=== PATIENT | female | born 1965 | race Caucasian/White ===

== ENCOUNTER 2018-11-22 07:08 | Inpatient (IN) | payer OTHER ==
[2018-11-22] MEDS ORDERED: Piperacillin/Tazobactam 4.5 GM VIAL ONE (07:26)
[2018-11-22 07:38] LABS: Base Excess-Venous -23.1 mmol/L (-2.0 to 3.0); Bicarbonate (HCO3v) 4.9 mmol/L (22.0-28.0); CO2 Tension (PvCO2) 17.1 mmHg (40.0-50.0); Calcium, Ionized 1.07 mmol/L (See Comments:); Chloride 119 mmol/L (98-107); Hemoglobin - Calc 19.5 g/dL (12.0-16.0); O2 Tension (PvO2) 51.4 mmHg (35.0-45.0); Potassium 4.5 mmol/L (3.5-5.1); Sodium 138 mmol/L (138-145); T. Carbon Dioxide 5.4 mmol/L (22.0-28.0); pH (Venous) 7.067 (7.320-7.430); vO2 Saturation-calc 71.8 % (60.0-85.0)
[2018-11-22 07:47] LABS: Hemoglobin 16.6 g/dL (12.0-16.0); Mean Corpuscular HGB CONC 30.8 g/dL (32.0-36.0); Mean Corpuscular Hemoglobin 29.2 pg (27.0-31.0); Mean Corpuscular Volume 95.1 fL (78.0-98.0); Mean Platelet Volume 9.1 fL (7.4-10.4); Platelet Count 565 thou/uL (130-400); RBC Distribution Width 12.7 % (11.5-14.5); Red Blood Cell (RBC) Count 5.69 mill/uL (4.20-5.40); White Blood Cell (WBC) Count 30.5 thou/uL (4.8-10.8)
--- NOTE | 2018-11-22 07:52 | RAD ---
FExam: Chest one view HISTORY:Vomiting Comparison: None FINDINGS: Cardiac silhouette: Normal Pulmonary vessels: Normal Costophrenic angles: Clear LUNGS: No masses or consolidation. Pneumothorax: None Osseous abnormalities: None IMPRESSION: No acute cardiopulmonary process.
[2018-11-22 08:00] LABS: Band 12 % (5-11); Lymphocytes 2 % (21-51); MDiff Complete? YES; Metamyelocyte 2 % (0-0); Monocytes 7 % (0-10); Myelocyte 1 % (0-0); Neutrophil 76 % (42-75); Platelet Morphology Comment Appears Increased
[2018-11-22 08:02] LABS: Bilirubin Moderate (Negative); Blood, Urine Large (Negative); Clarity CLOUDY (Clear); Glucose, Urine (Dipstick) >=1000 mg/dL (Negative); Leukocyte Negative (Negative); Nitrite Negative (Negative); Protein, Urine (Dipstick) 30 mg/dL (Neg-Trace); Specific Gravity, Urine 1.021 (1.002-1.036); Urobilinogen 0.2 mg/dL (0.2-1.0)
[2018-11-22 08:05] LABS: Squamous Epithelial 0-3 HPF (0-3)
[2018-11-22 08:18] LABS: Bacteria/HPF Rare-Few HPF (None Seen); Crystals/HPF RARE AMORPH URATES HPF (Negative); Yeast-All Forms None Seen HPF (None Seen)
[2018-11-22 08:23] LABS: ALT (SGPT) 16 U/L (8-55); AST (SGOT) 34 U/L (5-34); Albumin 3.2 g/dL (3.5-5.0); Alkaline Phosphatase 204 U/L (40-150); Calc. Creatinine Clearance 0 mL/min (70-130); Estimated GFR-MDRD 21; Globulin 5.9 g/dL (2.4-3.5); Phosphorus 4.4 mg/dL (2.3-4.7)
[2018-11-22 08:24] LABS: Magnesium 3.5 mg/dL (1.6-2.6)
[2018-11-22 08:26] LABS: BUN (Urea Nitrogen) 60 mg/dL (9.8-20.1); Bilirubin, Total 0.2 mg/dL (0.2-1.2); Calcium 9.5 mg/dL (7.8-10.44); Chloride 105 mmol/L (98-107); Protein, Total 9.1 g/dL (6.0-8.3); Sodium 138 mmol/L (136-145)
[2018-11-22 08:34] LABS: Carbon Dioxide Less than 8 mmol/L (22-29)
[2018-11-22 09:07] LABS: Glucose 790 mg/dL (70-105)
[2018-11-22] MEDS ORDERED: CCU Electrolyte Replacement 1 EACH IVPB ONE (09:11)
[2018-11-22] MEDS ORDERED: D5 1/2 NS w/20 mEq KCL 1,000 ML IV PRN (09:11)
[2018-11-22] MEDS ORDERED: Dextrose 5 %-0.45 % NaCl 1,000 ML IV PRN ×2 (09:11→12:46)
[2018-11-22] MEDS ORDERED: NS 0.9% w/ 20 MEQ KCL 1,000 ML IV PRN ×4 (09:11→12:43)
[2018-11-22] MEDS ORDERED: Sodium Chloride 0.9% 1,000 ML IV PRN ×8 (09:11→12:48)
[2018-11-22] MEDS ORDERED: HUMULIN R 100 UNITS in Sodium Chloride 0.9% 100 ML IVPB SCH ×3 (09:15→13:00)
[2018-11-22] MEDS ORDERED: Insulin Regular 300 UNITS/3 ML VIAL ONE (09:29)
[2018-11-22] MEDS ORDERED: Potassium Phosphate 12 MMOL in Sodium Chloride 0.9% 250 ML 250 ML IV PRN ×2 (09:57→12:48)
[2018-11-22] MEDS ORDERED: CCU ELECTROLYTE REPLACEMENT PROTOCOL FS PRN ×2 (09:57→12:48)
[2018-11-22] MEDS ORDERED: Potassium Chloride 20 MEQ TAB PO PRN ×2 (09:57→12:48)
[2018-11-22] MEDS ORDERED: Magnesium 2 GM/50 ML 2 GM in Premix Bag 1 BAG IVPB PRN ×2 (09:57→12:48)
[2018-11-22] MEDS ORDERED: Potassium Chloride 40 MEQ in Sodium Chloride 0.9% 250 ML 250 ML IVPB PRN (09:57)
[2018-11-22] MEDS ORDERED: Potassium Phosphate 9 MMOL in Sodium Chloride 0.9% 100 ML IVPB PRN ×2 (09:57→12:48)
[2018-11-22] MEDS ORDERED: Potassium Chloride 40 MEQ in Premix Bag 1 BAG IVPB PRN ×2 (09:57→12:48)
[2018-11-22] MEDS ORDERED: Magnesium Oxide 400 MG TAB PO PRN ×4 (09:57→12:48)
[2018-11-22] MEDS ORDERED: Potassium Phosphate 15 MMOL in Sodium Chloride 0.9% 250 ML 250 ML IV PRN ×2 (09:57→12:48)
[2018-11-22] MEDS ORDERED: PHOS-NAK 1 PKT PACK PO PRN ×4 (09:57→12:48)
[2018-11-22 10:06] LABS: BUN (Urea Nitrogen) 55 mg/dL (9.8-20.1); Calc. Creatinine Clearance 0 mL/min (70-130); Calcium 10.2 mg/dL (7.8-10.44); Chloride 107 mmol/L (98-107); Estimated GFR-MDRD 22; Potassium 3.3 mmol/L (3.5-5.1); Sodium 144 mmol/L (136-145)
[2018-11-22 10:13] LABS: Carbon Dioxide Less than 8 mmol/L (22-29); Glucose 753 mg/dL (70-105)
[2018-11-22] MEDS ORDERED: Sodium Chloride 0.9% 1,000 ML IV SCH (10:15)
[2018-11-22 10:57] LABS: Hemoglobin A1c 14.3 % (4.0-6.0)
[2018-11-22 11:17] VITALS: BMI 24.5
[2018-11-22] MEDS ORDERED: Piperacillin/Tazobactam 3.375 GM in Sodium Chloride 0.9% 100 ML IVPB SCH (12:00)
[2018-11-22] MEDS: Potassium Chloride 40 MEQ in Sodium Chloride 0.9% 250 ML 250 ML IVPB PRN ×2 (13:51→19:39)
--- NOTE | 2018-11-22 14:10 | PDOC.PULCN ---
Pulmonology Consult: HPI - Date of Consult Date: 11/22/18 Time: 09:30 - Consult Details Reason for Consult: DKA - History of Present Illness HPI: AMOS AZUL is a 53 year-old F w/o any previous medical history who presented to the ED after a 4 day history of nausea and vomiting. Per pt was feeling tired and mildly nauseated last monday which progressively worsened to N/V by Monday. She was seen in an OP clinic and diagnosed with a viral gastroenteritis and given zofran and phenergan w/o resolution of symptoms. Pt reports increased thirst and polyuria for the last several weeks. Pulmonology Consult: ROS - Review of Systems Constitutional: chills, weakness. negative: fever Cardiovascular: negative: chest pain, palpitations, edema Respiratory: negative: congestion, cough, chest soreness, chest tightness, pain on deep breathing, short of breath Pulmonology Consult: [facility] Source: patient, family Past Medical History: None known - Family History Pertinent family history: Maternal DMII - Social History Smoking Status: Never smoker Alcohol Use: occasional Drug Use History: none Living Situation: Pulmonology Consult: Meds - Medications MAR Reviewed: Yes Medications: Current Medications Potassium Chloride/Sodium Chloride (Ns 0.9% W/ 20 Meq Kcl) 1,000 mls @ 500 mls/ hr IV .Q2H PRN; Protocol PRN Reason: Step 2 of DKA Protocol Potassium Chloride/Sodium Chloride (Ns 0.9% W/ 20 Meq Kcl) 1,000 mls @ 250 mls/ hr IV .Q4H PRN; Protocol PRN Reason: SEE STEP 3 OF DKA PROTOCOL Dextrose/Sodium Chloride (D5 1/2 Ns) 1,000 mls @ 250 mls/hr IV .Q4H PRN; Protocol PRN Reason: Step 4 of DKA Protocol Potassium Chloride/Dextrose/Sod Cl (D5 1/2 Ns W/20 Meq Kcl) 1,000 mls @ 250 mls /hr IV .Q4H PRN; Protocol PRN Reason: Step 4 of DKA Protocol Insulin Human Regular 100 (units/ Sodium Chloride) 101 mls @ 0 mls/hr IVPB INF MIGEL; Protocol Sodium Chloride (Normal Saline 0.9%) 1,000 mls @ 500 mls/hr IV .Q2H PRN; Protocol PRN Reason: Step 1 of DKA Protocol Sodium Chloride (Normal Saline 0.9%) 1,000 mls @ 1,000 mls/hr IV .Q1H PRN; Protocol PRN Reason: Step 1 of DKA Protocol Sodium Chloride (Normal Saline 0.9%) 1,000 mls @ 250 mls/hr IV .Q4H PRN; Protocol PRN Reason: SEE STEP 3 OF DKA PROTOCOL Sodium Chloride (Normal Saline 0.9%) 1,000 mls @ 500 mls/hr IV .Q2H PRN; Protocol PRN Reason: Step 2 of DKA Protocol Piperacillin Sod/Tazobactam (Sod 3.375 gm/ Sodium Chloride) 100 mls @ 200 mls/ hr IVPB Q6HR MIGEL Potassium Chloride 40 meq/ (Sodium Chloride) 270 mls @ 135 mls/hr IVPB ASDIR PRN PRN Reason: FOR SERUM K+ 2.5 - 3.5 Last Admin: 11/22/18 13:51 Dose: 270 mls Potassium Chloride 40 meq/ (Device) 100 mls @ 50 mls/hr IVPB ASDIR PRN PRN Reason: FOR SERUM K+ 2.5 - 3.5 Magnesium Sulfate 1 gm/ Sodium (Chloride) 102 mls @ 102 mls/hr IV PRN PRN PRN Reason: MAG LEVEL 1.4 - 2.0 Magnesium Sulfate 2 gm/ Device 50 mls @ 50 mls/hr IVPB ASDIR PRN PRN Reason: MAGNESIUM < 1.4 Potassium Phosphate 9 mmol/ (Sodium Chloride) 103 mls @ 25.75 mls/hr IVPB ASDIR PRN PRN Reason: Phosphate 1.0-1.8 Potassium Phosphate 12 mmol/ (Sodium Chloride) 254 mls @ 63.5 mls/hr IV ASDIR PRN PRN Reason: Serum phosphate 0.5-0.9 Potassium Phosphate 15 mmol/ (Sodium Chloride) 255 mls @ 63.75 mls/hr IV ASDIR PRN PRN Reason: Serum Phos < 0.5 Magnesium Oxide (Magnesium Oxide) 400 mg PO BIDPRN PRN PRN Reason: FOR SERUM MAG 1.4 - 2.0 Magnesium Oxide (Magnesium Oxide) 800 mg PO PRN PRN PRN Reason: FOR SERUM MAG < 1.4 Miscellaneous Medication (Phos-Nak) 1 pkt PO TIDPRN PRN PRN Reason: FOR PHOS LEVEL 1.0 - 1.8 Miscellaneous Medication (Phos-Nak) 2 pkt PO TIDPRN PRN PRN Reason: FOR PHOS LEVEL 0.5 - 1.0 Ccu Electrolyte (Replacement Protocol) 0 each FS PRN PRN PRN Reason: FOR ELECTROLYTE REPLACEMENT Potassium Chloride (K-Dur) 40 meq PO ASDIR PRN PRN Reason: FOR SERUM K+ 2.5 - 3.5 Potassium Chloride (Klor-Con) 40 meq PER TUBE ASDIR PRN PRN Reason: FOR SERUM K+ 2.5-3.5 - Allergies Allergies/Adverse Reactions: Allergies Allergy/AdvReac Type Severity Reaction Status Date / Time crayfish Allergy Unknown Emesis Verified 11/23/18 15:00 codeine Allergy Verified 11/22/18 09:04 Pulmonology Consult: PE - Physical Exam Deviation from normal: Moderate distress, ill appearing HEENT: PERRLA Deviation from normal: dry MM Neck: no JVD Cardiovascular: no significant murmur, no rub Deviation from normal: tachycardic Respiratory: clear to auscultation anteriorly, clear to auscultation bilaterally Gastrointestinal: soft, no distention Deviation from normal: hypoactive BSX4, mild RUQ/Epigastric TTP Musculoskeletal: no edema, pulses present Neurological: non-focal, moves all 4 limbs Psychiatric: normal affect Skin: no rash Pulmonology Consult: Results - Labs Result Diagrams: 11/27/18 07:15 11/27/18 07:15 - ABG Interpretation Attestation: I reviewed and interpreted this ABG. ABG Results: POC Bicarbonate Calc 4.9 mmol/L (22.0-28.0) L* 11/22/18 07:34 Interpretation: metabolic acidosis - EKG Data Rate: tachycardia Pulmonology Consult: A/P - Problem (1) DKA (diabetic ketoacidoses) Current Visit: Yes Code(s): E13.10 - OTH DIABETES MELLITUS WITH KETOACIDOSIS WITHOUT COMA Status: Acute (2) SIRS (systemic inflammatory response syndrome) Current Visit: Yes Code(s): R65.10 - SIRS OF NON-INFECTIOUS ORIGIN W/O ACUTE ORGAN DYSFUNCTION Status: Acute (3) High anion gap metabolic acidosis Current Visit: Yes Code(s): E87.2 - ACIDOSIS Status: Acute (4) NOLA (acute kidney injury) Current Visit: Yes Code(s): N17.9 - ACUTE KIDNEY FAILURE, UNSPECIFIED Status : Acute (5) Elevated lipase Current Visit: Yes Code(s): R74.8 - ABNORMAL LEVELS OF OTHER SERUM ENZYMES Status: Acute - Time Time: 50% of the time was spent in coordination of care (as documented) at patient's floor/unit and/or counseling patient. Time with Patient: greater than 50 minutes - Plan Plan: 1) DKA: - pt profoundly hyperglycemic with large anion gap met acidosis and B- hydroxybutyrate >9 - pt currently placed on DKA protocol - pt blood gas supportive of anion gap met acidosis - pH >6.9, no bicarb inidicated - continue to trend potassium and cont K+ w/ NS until K+ 4-5 - UA negative for evidence of infection. Will check ruq US given elevated lipase and elevated alk phos; although this could be simply secondary to severity of disease 2) SIRS - 2/2 DKA - cont DKA protocol 3) AG met acidosis: - 2/2 DKA - see 1 4) elevated lipase: possibly 2/2 DKA; however, r/o pancreatitis causes - RUQ US ordered, pending 5) NOLA: bun/cr: >20, pre-renal azotemia 2/2 profound volume depletion unknown baseline creatinine cont IVF hydration Dispo: Pt will remain in ICU on DKA protocol and electrolytes closely monitored. RUQ pending. Addendum - Attending - Attending Attestation Date/Time: 11/22/18 1900 I personally evaluated the patient and discussed the management with Dr. Mcrae. I agree with the History, Examination, Assessment and Plan documented above with any addition or exceptions noted below. 70 minutes have been devoted to this patient in various activities. I personally reviewed all imaging studies and laboratory data noted within this document. For fifty percent of this time, I was interacting with the patient at the bedside or coordinating care with the care team. For the remainder of the time I was immediately available to the patient in the hospital unit.
[2018-11-22 14:13] LABS: Lactic Acid 1.6 mmol/L (0.5-2.2)
--- NOTE | 2018-11-22 15:28 | ULT ---
FEXAM: US Gallbladder RUQ CLINICAL HISTORY: Elevated lipase. Rule out for common bile duct stone.. COMPARISON: None. FINDINGS: Markedly limited evaluation due to bowel gas. Pancreas: Obscured by bowel gas Liver:Limited in evaluation. Increased echogenicity may be due to technical limitations. The possibil ity of hepatic steatosis or hepatocellular disease cannot be excluded. Right portal vein is patent Gallbladder: No sonographic evidence of cholelithiasis, gallbladder wall thickening or pericholecysti c fluid. Brady's sign:Negative Bile ducts: Suboptimal evaluation of the common bile duct. If there is concern for choledocholithiasi s, consider MRCP or ERCP. Right kidney: Mild pelvic dilatation Right kidney measuring 6.3 x 6.1 x 12.5 cm. cm in length. IMPRESSION: 1. No sonographic evidence of cholelithiasis or cholecystitis. 2. Mild right-sided hydronephrosis. 3. Suboptimal evaluation the common bile duct. If there is concern for choledocholithiasis, consider MRCP or ERCP.
[2018-11-22 15:56] LABS: Anion Gap 18 mmol/L (10-20); BUN (Urea Nitrogen) 45 mg/dL (9.8-20.1); Calc. Creatinine Clearance 43 mL/min (70-130); Calcium 8.3 mg/dL (7.8-10.44); Carbon Dioxide 12 mmol/L (22-29); Chloride 122 mmol/L (98-107); Estimated GFR-MDRD 30; Glucose 409 mg/dL (70-105); Potassium 2.6 mmol/L (3.5-5.1); Sodium 149 mmol/L (136-145)
[2018-11-22] MEDS ORDERED: Potassium Chloride 40 MEQ in Sodium Chloride 0.45% 1,000 ML IV SCH (16:15)
--- NOTE | 2018-11-22 17:09 | HP ---
CHIEF COMPLAINT: Nausea, vomiting, and generalized weakness. HISTORY OF PRESENT ILLNESS: The patient is a 53-year-old female with no significant past medical history, who presents to the hospital for generalized weakness. The patient's and the patient stated that for the past week she has been having generalized weakness and abdominal pain and emesis. The patient does state that she has been very stressed at work, however, in the past 24 hours, she started having worsening and worsening weakness. The patient did go to a physician about 4 days ago with the complaints of abdominal pain, nausea, and generalized weakness. At this time, she was diagnosed with a viral gastroenteritis and was given promethazine and Zofran. The patient's symptoms continued to worsen. She was unable to take anything orally, only minimal hydration with some Powerade or Gatorade. The patient's stated that this morning she went to the bathroom and almost was unable to get up due to significant weakness. The patient's denied the patient having a syncopal episode or having any injuries. The patient denies any fevers or chills. Denies any diarrhea; however, she has been constipated. She denies any recent infections. She did complain of some left-sided ear pain; however, has not taken any antibiotics or has not been diagnosed with anything. PAST MEDICAL HISTORY: She has seasonal allergies. PAST SURGICAL HISTORY: None. FAMILY HISTORY: Mother had diabetes. SOCIAL HISTORY: She denies any tobacco use, alcohol, or smoking. She is . She is a full code. She lives with her . She is a teacher. ALLERGIES: SHE IS ALLERGIC TO CODEINE, HER REACTION IS VOMITING. MEDICATIONS: She takes Claritin-D. REVIEW OF SYSTEMS: All negative except for the ones mentioned above in the HPI. PHYSICAL EXAMINATION: VITAL SIGNS: Temperature of 98.8, heart rate of 123, BP 135/94, and oxygen saturation on room air. GENERAL: She is awake, alert, appears ill, oriented x3. CV: S1 and S2 present. Tachycardic. LUNGS: Clear to auscultation. No rhonchi or wheezes noted. HEENT: Normocephalic and atraumatic. No lymphadenopathy noted. Her ears using otoscope were examined, no erythema or abnormalities noted. ABDOMEN: Bowel sounds are present x2. Soft. Pain on palpation around the umbilical area and bilateral suprapubic area. NEUROVASCULAR: No focal deficits noted. The patient is able to move everything. SKIN: No rashes or lesions noted. LABORATORY RESULTS: Sodium of 138, potassium of 5.0, BUN of 60, creatinine of 2.38, glucose of 790, magnesium of 3.5, alkaline phos of 204, lipase of 775. WBCs of 30.5, hemoglobin of 16.6, hematocrit of 54.1, and platelets of 565. She has 12 bands. UA appears grossly normal, just wbc's of 7 to 10. IMAGING STUDIES: Chest x-ray, no acute abnormalities noted. ASSESSMENT AND PLAN: The patient is a 53-year-old female, who presents to the hospital with generalized weakness. 1. Diabetic ketoacidosis. The patient states that she has never been officially diagnosed with either prediabetes or diabetes. We will start the patient on insulin drip. She is receiving normal saline boluses and we will start the patient on the diabetic ketoacidosis protocol. Given her pH of 7.06, she does not meet the criteria for any bicarb. We will just continue to monitor her and continue checking the chemistries every 3 to 4 hours. We will also check a hemoglobin A1c. 2. Acute kidney injury. Her creatinine is 2.3. I will get a CT of abdomen and pelvis without contrast just to rule out any obstructive pathology. We will also check urine electrolytes. Most likely, this is secondary to dehydration. If her creatinine does not improve, may consider getting a renal consult. 3. Leukocytosis. This is most likely secondary to her diabetic ketoacidosis; however, I cannot rule out infection. Urine and chest x-ray did not show any acute abnormalities. I will go ahead and do a CT of abdomen and pelvis to see if there are any other abnormalities and we will prophylactically start her on some Zosyn and this may be discontinued if she improves. 4. Anion gap metabolic acidosis, most likely secondary to her diabetic ketoacidosis. Her beta-hydroxybutyric acid was 9.19. We will continue to monitor her chemistry. If her acidosis and her creatinine does not improve, I will not hesitate to consult Nephrology. However, for now, I believe we will continue her current treatment. 5. Deep venous thrombosis prophylaxis. We will put the patient on SCDs. The plan was discussed with the family, with , and the patient and we will continue to monitor her. Job ID: [id number]
[2018-11-22] MEDS ORDERED: Famotidine/PF 20 mg/2ml Vial SLOW IVP SCH (17:30)
[2018-11-22] MEDS ORDERED: Ondansetron PF 4 MG/2 ML Vial IVP SCH (17:45)
[2018-11-22] MEDS: Piperacillin/Tazobactam 3.375 GM in Sodium Chloride 0.9% 100 ML IVPB SCH ×2 (17:55→22:59)
[2018-11-22] MEDS: D5 1/2 NS w/20 mEq KCL 1,000 ML IV PRN ×2 (18:20→22:59)
[2018-11-22 18:21] LABS: Anion Gap 15 mmol/L (10-20); BUN (Urea Nitrogen) 41 mg/dL (9.8-20.1); Calc. Creatinine Clearance 49 mL/min (70-130); Calcium 8.8 mg/dL (7.8-10.44); Carbon Dioxide 15 mmol/L (22-29); Estimated GFR-MDRD 36; Glucose 280 mg/dL (70-105); Potassium 3.1 mmol/L (3.5-5.1); Sodium 155 mmol/L (136-145)
[2018-11-22 18:25] LABS: Chloride 128 mmol/L (98-107)
[2018-11-23 02:38] LABS: Anion Gap 10 mmol/L (10-20); BUN (Urea Nitrogen) 31 mg/dL (9.8-20.1); Calc. Creatinine Clearance 63 mL/min (70-130); Calcium 8.8 mg/dL (7.8-10.44); Carbon Dioxide 18 mmol/L (22-29); Estimated GFR-MDRD 48; Glucose 206 mg/dL (70-105); Magnesium 1.9 mg/dL (1.6-2.6); Potassium 3.5 mmol/L (3.5-5.1); Sodium 156 mmol/L (136-145)
[2018-11-23 02:41] LABS: Chloride 132 mmol/L (98-107); Phosphorus Less than 1.0 mg/dL (2.3-4.7)
[2018-11-23] MEDS: Piperacillin/Tazobactam 3.375 GM in Sodium Chloride 0.9% 100 ML IVPB SCH ×4 (05:44→23:58)
[2018-11-23] MEDS: D5 1/2 NS w/20 mEq KCL 1,000 ML IV PRN (06:15)
[2018-11-23] MEDS ORDERED: Dextrose 50% Abboject 50 ML SYRINGE SLOW IVP PRN (08:17)
[2018-11-23] MEDS ORDERED: Dextrose 5% in Water 1,000 ML IV PRN (08:17)
[2018-11-23] MEDS ORDERED: Potassium Phosphate 30 MMOL in Sodium Chloride 0.9% 500 ML IVPB SCH (09:00)
[2018-11-23] MEDS: Insulin Glargine 12 UNITS in Pre-Filled Syringe 1 EACH SC SCH (09:47)
[2018-11-23] MEDS: Famotidine/PF 20 mg/2ml Vial SLOW IVP SCH (09:47)
[2018-11-23] MEDS: Dextrose 5% in Water 1,000 ML IV SCH ×2 (09:57→23:59)
--- NOTE | 2018-11-23 11:39 | PRG ---
DATE OF SERVICE: 11/23/2018 SERVICE: Pulmonary Medicine. INTERVAL HISTORY: The patient is doing really well from a metabolic standpoint. Overnight, her blood cultures x2 grew gram-negative rods. She is on appropriate antibiotics currently. She has no complaints of shortness of breath or chest discomfort currently. Her heart rate is settling down very nicely. She is yet to get her appetite back. PHYSICAL EXAMINATION: VITAL SIGNS: Afebrile, pulse 98, blood pressure 157/95, respirations 19, saturation 100% on room air. GENERAL: The patient is awake and alert, in no apparent distress. LUNGS: Excellent air entry with no prolonged expiratory phase. No crackles are identified. HEART: Normal rate and regular. ABDOMEN: Soft, nontender, and nondistended. Bowel sounds are positive. MUSCULOSKELETAL: No cyanosis or clubbing. No pitting in the bilateral lower extremities. NEUROLOGIC: Grossly nonfocal. LABORATORY DATA: Blood sugar ranges from 137 to 173. Chloride 132, sodium is up trending to 156, creatinine 1.17 and downtrending. Phosphorus is below the assay limit of 1, magnesium 1.9. Beta-hydroxybutyrate was 9. Blood culture is growing E coli in 2/2. Urine culture, and influenza A and B are negative to date. IMAGING: Ultrasound demonstrates no evidence of cholecystitis or choledocholithiasis. ASSESSMENT: 1. Severe sepsis. 2. Bacteremia secondary to Escherichia coli. 3. Diabetic ketoacidosis. 4. Acute kidney injury, resolving. 5. Hypernatremia. DISCUSSION AND PLAN: I will repeat a CBC, CMP, and lipase tomorrow morning. At this point, she is on appropriate antibiotic. Vancomycin will be interrupted. Pulmonary/Critical Care will continue to follow along while the patient remains in this location. She is much improved compared to where we were yesterday, but has a long road ahead of us for recovery. We still do not quite know where our source was from. That being said, she maintains a little bit of encephalopathy associated with hypernatremia. When she wakes up a little bit more, we will need to re-evaluate her GI tract. Job ID: [id number]
[2018-11-23] MEDS: HumaLOG 300 UNITS/3 ML VIAL SC PRN ×3 (12:32→20:52)
[2018-11-23] MEDS ORDERED: Ondansetron PF 4 MG/2 ML Vial IVP PRN (13:27)
--- NOTE | 2018-11-23 13:33 | PDOC.PN ---
- Subjective Encounter Start Date: 11/23/18 Encounter Start Time: 13:31 Patient seen and examined, family at bedside, patient states she feels better, all questions answered. - Objective Vital Signs & Weight: Vital Signs (12 hours) Temp 11/23/18 12:00 98.4 F 11/23/18 08:00 98.2 F 11/23/18 03:00 98.0 F Weight Weight 160 lb 14.999 oz Most Recent Monitor Data Heart Rate from ECG 95 NIBP 145/82 NIBP BP-Mean 103 Respiration from ECG 16 SpO2 100 I&O: 11/22/18 11/23/18 11/24/18 06:59 06:59 06:59 Intake Total 6686 Output Total 2600 525 Balance 4086 -525 Result Diagrams: 11/22/18 07:22 11/23/18 01:40 Additional Labs: Accuchecks 11/23/18 11/23/18 11/23/18 11:37 10:42 09:36 POC Glucose 177 H 177 H 190 H 11/23/18 11/23/18 11/23/18 08:28 07:31 06:12 POC Glucose 173 H 173 H 158 H 11/23/18 11/23/18 11/23/18 04:55 04:01 03:13 POC Glucose 137 H 125 H 152 H 11/23/18 11/23/18 11/23/18 01:46 00:50 00:04 POC Glucose 179 H 202 H 218 H 11/22/18 11/22/18 11/22/18 22:59 22:16 21:00 POC Glucose 286 H 256 H 294 H 11/22/18 11/22/18 11/22/18 20:11 19:14 18:04 POC Glucose 286 H 233 H 221 H 11/22/18 11/22/18 11/22/18 17:04 16:04 15:00 POC Glucose 277 H 271 H 328 H 11/22/18 11/22/18 11/22/18 14:00 13:04 12:04 POC Glucose 345 H 373 H 428 H 11/22/18 11:03 POC Glucose 507 H Phys Exam - Physical Examination Constitutional: NAD fatigued, aceton smell in room HEENT: PERRLA, moist MMs, sclera anicteric Neck: no nodes, no JVD, supple Respiratory: no wheezing, no rales, no rhonchi Cardiovascular: RRR, no significant murmur, no rub Gastrointestinal: soft, non-tender, no distention Musculoskeletal: no edema, pulses present Dx/Plan (1) NOLA (acute kidney injury) Code(s): N17.9 - ACUTE KIDNEY FAILURE, UNSPECIFIED Status: Acute (2) DKA (diabetic ketoacidoses) Code(s): E13.10 - OTH DIABETES MELLITUS WITH KETOACIDOSIS WITHOUT COMA Status : Acute (3) High anion gap metabolic acidosis Code(s): E87.2 - ACIDOSIS Status: Acute (4) SIRS (systemic inflammatory response syndrome) Code(s): R65.10 - SIRS OF NON-INFECTIOUS ORIGIN W/O ACUTE ORGAN DYSFUNCTION Status: Acute - Plan * DC insulin drip, gap closed * on D5W due to high Na, patient also states she's thirsty, clear liquid ordered , nurse advised to give zofran prior to meals and allow patient to drink some water, she'll likely correct her own Na with water in take * transfer to floor * A1C above 14, will monitor for now on the telemetry floor * UA shows some proteinuria, will obtain random UPC for now * will also start on SHAVON prior to discharge * possible DC in 24-48hrs if patient doing better, tolerating diet and passing gas * advised family that patient will need yearly eye exams as well as twice yearly labs and urinalysis done * case and plan d/w patient and famly at length, they understand and agree with this plan.
[2018-11-23 16:59] LABS: Magnesium 1.7 mg/dL (1.6-2.6)
[2018-11-23 19:29] LABS: ALT (SGPT) 8 U/L (8-55); AST (SGOT) 12 U/L (5-34); Albumin 2.5 g/dL (3.5-5.0); Alkaline Phosphatase 131 U/L (40-150); Anion Gap 14 mmol/L (10-20); BUN (Urea Nitrogen) 20 mg/dL (9.8-20.1); Bilirubin, Total 0.5 mg/dL (0.2-1.2); Calc. Creatinine Clearance 80 mL/min (70-130); Calcium 8.3 mg/dL (7.8-10.44); Carbon Dioxide 17 mmol/L (22-29); Chloride 128 mmol/L (98-107); Estimated GFR-MDRD 63; Globulin 3.4 g/dL (2.4-3.5); Glucose 345 mg/dL (70-105); Potassium 3.8 mmol/L (3.5-5.1); Protein, Total 5.9 g/dL (6.0-8.3); Sodium 155 mmol/L (136-145)
[2018-11-24] MEDS: Piperacillin/Tazobactam 3.375 GM in Sodium Chloride 0.9% 100 ML IVPB SCH ×3 (05:34→16:43)
[2018-11-24] MEDS: HumaLOG 300 UNITS/3 ML VIAL SC PRN (05:35)
[2018-11-24 08:07] LABS: #Lymphocytes 1.7 thou/uL (1.20-3.40); #Monocytes 0.7 thou/uL (0.11-0.59); #Neutrophils 10.3 thou/uL (1.40-6.50); %Basophils 0.3 % (0.0-1.0); %Eosinophils 0.3 % (0.0-10.0); %Lymphocytes 13.5 % (21.0-51.0); %Monocytes 5.5 % (0.0-10.0); %Neutrophils 80.4 % (42.0-75.0); Hemoglobin 12.7 g/dL (12.0-16.0); Mean Corpuscular Hemoglobin 29.7 pg (27.0-31.0); Mean Corpuscular Volume 89.9 fL (78.0-98.0); Mean Platelet Volume 8.2 fL (7.4-10.4); Platelet Count 300 thou/uL (130-400); RBC Distribution Width 12.4 % (11.5-14.5); Red Blood Cell (RBC) Count 4.26 mill/uL (4.20-5.40); White Blood Cell (WBC) Count 12.8 thou/uL (4.8-10.8)
[2018-11-24] MEDS: Insulin Glargine 12 UNITS in Pre-Filled Syringe 1 EACH SC SCH (09:19)
[2018-11-24] MEDS: Famotidine/PF 20 mg/2ml Vial SLOW IVP SCH (09:19)
[2018-11-24] MEDS: Dextrose 5% in Water 1,000 ML IV SCH (09:54)
[2018-11-24 10:15] LABS: Anion Gap 11 mmol/L (10-20); BUN (Urea Nitrogen) 14 mg/dL (9.8-20.1); Calc. Creatinine Clearance 89 mL/min (70-130); Calcium 8.3 mg/dL (7.8-10.44); Carbon Dioxide 23 mmol/L (22-29); Chloride 122 mmol/L (98-107); Estimated GFR-MDRD 72; Glucose 398 mg/dL (70-105); Potassium 3.1 mmol/L (3.5-5.1); Sodium 153 mmol/L (136-145)
[2018-11-24 11:45] LABS: Creatinine, Urine 22.37 mg/dL (47-110); Protein, Urine Random Quant Less than 10 mg/dL (1-14)
[2018-11-24] MEDS: Insulin Regular 300 UNITS/3 ML VIAL SC PRN ×3 (11:45→20:46)
--- NOTE | 2018-11-24 12:46 | PDOC.PN ---
- Subjective Encounter Start Date: 11/24/18 Encounter Start Time: 12:45 Patient seen and examined, states she feels better, no othe rissues or complaints, no famly at bedside, all questions answered. - Objective Vital Signs & Weight: Vital Signs (12 hours) Temp Pulse Resp BP Pulse Ox 11/24/18 11:05 98.2 F 76 16 144/82 H 97 11/24/18 07:30 98.3 F 80 20 150/89 H 97 11/24/18 04:00 97.7 F 89 20 113/74 96 Weight Admit Weight 160 lb Weight 160 lb 14.999 oz Most Recent Monitor Data Heart Rate from ECG 86 NIBP 143/92 NIBP BP-Mean 109 Respiration from ECG 16 SpO2 100 I&O: 11/23/18 11/24/18 11/25/18 06:59 06:59 06:59 Intake Total 6686 1981 Output Total 2600 1225 Balance 4086 756 Result Diagrams: 11/24/18 07:38 11/24/18 09:40 Additional Labs: Accuchecks 11/24/18 11/24/18 11/23/18 11:09 04:43 16:03 POC Glucose 357 H 343 H 288 H Phys Exam - Physical Examination Constitutional: NAD HEENT: PERRLA, moist MMs, sclera anicteric Neck: no nodes, no JVD, supple Respiratory: no wheezing, no rales, no rhonchi Cardiovascular: RRR, no significant murmur, no rub Gastrointestinal: soft, non-tender, no distention Musculoskeletal: no edema, pulses present Dx/Plan (1) NOLA (acute kidney injury) Code(s): N17.9 - ACUTE KIDNEY FAILURE, UNSPECIFIED Status: Acute (2) DKA (diabetic ketoacidoses) Code(s): E13.10 - OTH DIABETES MELLITUS WITH KETOACIDOSIS WITHOUT COMA Status : Acute (3) High anion gap metabolic acidosis Code(s): E87.2 - ACIDOSIS Status: Acute (4) SIRS (systemic inflammatory response syndrome) Code(s): R65.10 - SIRS OF NON-INFECTIOUS ORIGIN W/O ACUTE ORGAN DYSFUNCTION Status: Acute - Plan * advance diet slowly, tolerating well * cont insulins for now, sugars are still a bit volatile and thus not ready for discharge * DC plans in 24-48hrs once patient is tolerating diet and stable * case and plan d/w patient at length, she understood and agreed with this plan
[2018-11-24 17:46] LABS: ALT (SGPT) 12 U/L (8-55); AST (SGOT) 11 U/L (5-34); Albumin 2.7 g/dL (3.5-5.0); Alkaline Phosphatase 135 U/L (40-150); Anion Gap 14 mmol/L (10-20); BUN (Urea Nitrogen) 12 mg/dL (9.8-20.1); Calc. Creatinine Clearance 89 mL/min (70-130); Calcium 8.6 mg/dL (7.8-10.44); Carbon Dioxide 22 mmol/L (22-29); Chloride 117 mmol/L (98-107); Estimated GFR-MDRD 72; Globulin 3.9 g/dL (2.4-3.5); Glucose 464 mg/dL (70-105); Phosphorus 1.1 mg/dL (2.3-4.7); Potassium 2.9 mmol/L (3.5-5.1); Protein, Total 6.6 g/dL (6.0-8.3); Sodium 150 mmol/L (136-145)
--- NOTE | 2018-11-24 18:41 | CT ---
FCT brain noncontrast: HISTORY: 53-year-old with altered mental status and confusion FINDINGS: There is no evidence of acute intra-axial or extra-axial hemorrhage. No mass effect, midline shift, o r extra-axial fluid collection. No evidence of obstructive hydrocephalus. Calvarium is intact. IMPRESSION: No acute intracranial findings.
--- NOTE | 2018-11-24 19:28 | PRG ---
DATE OF SERVICE: 11/24/2018 SUBJECTIVE: Julianne Bulls They bowls in no distress. She is weak. She has not walked much. She did take a shower today and she feels 100% better. OBJECTIVE: VITAL SIGNS: She is afebrile, heart rate 76, respiratory rate 16, oximetry is 97% on room, and blood pressure 144/82. LUNGS: Clear. HEART: Regular rhythm. ABDOMEN: Soft. LABORATORY DATA: Glucoses have all been less than 173 in last 24 hours. White count 12.8, hemoglobin 12.7, platelets 00,000. IMPRESSION AND PLAN: Hyperosmolar state with metabolic acidosis, new onset diabetes. She may benefit from rehab for deconditioning and her lack of miliary with diabetes. Job ID: [id number]
[2018-11-24] MEDS ORDERED: POTASSIUM PHOSPHATE IVPB SCH (20:00)
[2018-11-24] MEDS ORDERED: SODIUM CHLORIDE 0.9% IVPB SCH (20:00)
[2018-11-25] MEDS: Piperacillin/Tazobactam 3.375 GM in Sodium Chloride 0.9% 100 ML IVPB SCH ×5 (00:09→23:39)
[2018-11-25] MEDS: Insulin Regular 300 UNITS/3 ML VIAL SC PRN ×4 (05:37→20:30)
[2018-11-25] MEDS: Dextrose 5% in Water 1,000 ML IV SCH ×2 (05:39→11:00)
[2018-11-25 07:02] LABS: #Eosinphils 0.1 thou/uL (0.0-0.7); #Lymphocytes 2.7 thou/uL (1.20-3.40); #Monocytes 0.7 thou/uL (0.11-0.59); #Neutrophils 10.1 thou/uL (1.40-6.50); %Basophils 0.2 % (0.0-1.0); %Eosinophils 0.6 % (0.0-10.0); %Lymphocytes 19.6 % (21.0-51.0); %Monocytes 5.4 % (0.0-10.0); %Neutrophils 74.3 % (42.0-75.0); Mean Corpuscular HGB CONC 33.4 g/dL (32.0-36.0); Mean Corpuscular Hemoglobin 30.2 pg (27.0-31.0); Mean Corpuscular Volume 90.4 fL (78.0-98.0); Platelet Count 269 thou/uL (130-400); RBC Distribution Width 12.4 % (11.5-14.5); Red Blood Cell (RBC) Count 3.99 mill/uL (4.20-5.40); White Blood Cell (WBC) Count 13.6 thou/uL (4.8-10.8)
[2018-11-25 07:18] LABS: ALT (SGPT) 11 U/L (8-55); AST (SGOT) 9 U/L (5-34); Albumin 2.4 g/dL (3.5-5.0); Alkaline Phosphatase 109 U/L (40-150); Anion Gap 14 mmol/L (10-20); BUN (Urea Nitrogen) 9 mg/dL (9.8-20.1); Calc. Creatinine Clearance 96 mL/min (70-130); Calcium 7.8 mg/dL (7.8-10.44); Carbon Dioxide 27 mmol/L (22-29); Chloride 117 mmol/L (98-107); Estimated GFR-MDRD 78; Globulin 3.3 g/dL (2.4-3.5); Glucose 329 mg/dL (70-105); Protein, Total 5.7 g/dL (6.0-8.3); Sodium 155 mmol/L (136-145)
[2018-11-25 07:22] LABS: Potassium 2.6 mmol/L (3.5-5.1)
[2018-11-25] MEDS: Potassium Chloride 20 MEQ TAB PO SCH (07:57)
[2018-11-25] MEDS: Famotidine/PF 20 mg/2ml Vial SLOW IVP SCH (07:58)
[2018-11-25] MEDS: Insulin Glargine 12 UNITS in Pre-Filled Syringe 1 EACH SC SCH (08:48)
[2018-11-25] MEDS: Sodium Chloride 0.45% 1,000 ML IV SCH (09:45)
--- NOTE | 2018-11-25 14:44 | PDOC.PN ---
- Subjective Encounter Start Date: 11/25/18 Encounter Start Time: 14:42 Patient seen and examined, states she feels much better today, asking for water and would like to advance her diet. Family at bedside, all questions answered. - Objective Vital Signs & Weight: Vital Signs (12 hours) Temp Pulse Resp BP BP Pulse Ox 11/25/18 08:50 97.9 F 64 16 131/81 97 11/25/18 04:54 98.3 F 80 18 113/69 99 Weight Admit Weight 160 lb Weight 160 lb 14.999 oz Most Recent Monitor Data Heart Rate from ECG 86 NIBP 143/92 NIBP BP-Mean 109 Respiration from ECG 16 SpO2 100 I&O: 11/24/18 11/25/18 11/26/18 06:59 06:59 06:59 Intake Total 1981 1350 Output Total 1225 Balance 756 1350 Result Diagrams: 11/25/18 06:36 11/25/18 06:36 Additional Labs: Accuchecks 11/25/18 11/25/18 11/24/18 11:14 04:01 20:14 POC Glucose 390 H 317 H 297 H 11/24/18 16:06 POC Glucose 415 H Phys Exam - Physical Examination Constitutional: NAD HEENT: PERRLA, moist MMs, sclera anicteric Neck: no nodes, no JVD, supple Respiratory: no wheezing, no rales, no rhonchi Cardiovascular: RRR, no significant murmur, no rub Gastrointestinal: soft, non-tender, no distention Musculoskeletal: pulses present, edema present (trace) Dx/Plan (1) NOLA (acute kidney injury) Code(s): N17.9 - ACUTE KIDNEY FAILURE, UNSPECIFIED Status: Acute (2) DKA (diabetic ketoacidoses) Code(s): E13.10 - OTH DIABETES MELLITUS WITH KETOACIDOSIS WITHOUT COMA Status : Acute (3) High anion gap metabolic acidosis Code(s): E87.2 - ACIDOSIS Status: Acute (4) SIRS (systemic inflammatory response syndrome) Code(s): R65.10 - SIRS OF NON-INFECTIOUS ORIGIN W/O ACUTE ORGAN DYSFUNCTION Status: Acute - Plan * add 1/2NS for 2L bag * advance diet to diabetic diet * increase lantus to 20units qhs * cont with aggressive ISS for now * DC plans in 24-48hrs * case and plan d/w patient at length, she understood and agreed with this plan.
[2018-11-25] MEDS ORDERED: Docusate 100 MG CAP PO PRN (15:49)
[2018-11-25 17:02] LABS: ALT (SGPT) 13 U/L (8-55); AST (SGOT) 11 U/L (5-34); Albumin 2.7 g/dL (3.5-5.0); Alkaline Phosphatase 118 U/L (40-150); Anion Gap 14 mmol/L (10-20); BUN (Urea Nitrogen) 7 mg/dL (9.8-20.1); Bilirubin, Total 0.8 mg/dL (0.2-1.2); Calc. Creatinine Clearance 91 mL/min (70-130); Calcium 8.1 mg/dL (7.8-10.44); Carbon Dioxide 25 mmol/L (22-29); Chloride 112 mmol/L (98-107); Estimated GFR-MDRD 74; Globulin 3.7 g/dL (2.4-3.5); Glucose 440 mg/dL (70-105); Phosphorus 1.8 mg/dL (2.3-4.7); Potassium 2.4 mmol/L (3.5-5.1); Protein, Total 6.4 g/dL (6.0-8.3); Sodium 149 mmol/L (136-145)
[2018-11-25] MEDS ORDERED: Potassium Chloride 20 MEQ TAB PO SCH (18:00)
[2018-11-25] MEDS: Insulin Glargine 20 UNITS in Pre-Filled Syringe 1 EACH SC SCH (20:30)
[2018-11-26] MEDS: Piperacillin/Tazobactam 3.375 GM in Sodium Chloride 0.9% 100 ML IVPB SCH ×4 (05:24→23:27)
[2018-11-26 06:56] LABS: #Eosinphils 0.3 thou/uL (0.0-0.7); #Lymphocytes 2.8 thou/uL (1.20-3.40); #Monocytes 0.7 thou/uL (0.11-0.59); #Neutrophils 11.2 thou/uL (1.40-6.50); %Basophils 0.2 % (0.0-1.0); %Eosinophils 1.9 % (0.0-10.0); %Lymphocytes 18.7 % (21.0-51.0); %Monocytes 4.4 % (0.0-10.0); %Neutrophils 74.7 % (42.0-75.0); Hemoglobin 12.1 g/dL (12.0-16.0); Mean Corpuscular HGB CONC 33.9 g/dL (32.0-36.0); Mean Corpuscular Hemoglobin 30.2 pg (27.0-31.0); Mean Corpuscular Volume 89.1 fL (78.0-98.0); Mean Platelet Volume 7.9 fL (7.4-10.4); Platelet Count 265 thou/uL (130-400); RBC Distribution Width 12.2 % (11.5-14.5); Red Blood Cell (RBC) Count 4.01 mill/uL (4.20-5.40)
[2018-11-26 07:18] LABS: ALT (SGPT) 11 U/L (8-55); AST (SGOT) 15 U/L (5-34); Albumin 2.3 g/dL (3.5-5.0); Alkaline Phosphatase 99 U/L (40-150); Anion Gap 9 mmol/L (10-20); BUN (Urea Nitrogen) 6 mg/dL (9.8-20.1); Bilirubin, Total 0.8 mg/dL (0.2-1.2); Calc. Creatinine Clearance 124 mL/min (70-130); Calcium 7.5 mg/dL (7.8-10.44); Carbon Dioxide 29 mmol/L (22-29); Chloride 111 mmol/L (98-107); Estimated GFR-MDRD Greater than 90; Globulin 3.3 g/dL (2.4-3.5); Glucose 95 mg/dL (70-105); Protein, Total 5.6 g/dL (6.0-8.3); Sodium 147 mmol/L (136-145)
[2018-11-26 07:38] LABS: Potassium 2.4 mmol/L (3.5-5.1)
[2018-11-26] MEDS: Famotidine/PF 20 mg/2ml Vial SLOW IVP SCH (08:13)
[2018-11-26] MEDS: Potassium Chloride 20 MEQ TAB PO SCH (08:13)
--- NOTE | 2018-11-26 08:53 | PDOC.PN ---
- Subjective Encounter Start Date: 11/26/18 Encounter Start Time: 08:52 Patient seen and examined, no new issues - Objective Vital Signs & Weight: Vital Signs (12 hours) Temp Pulse Resp BP Pulse Ox 11/26/18 07:44 98.0 F 72 18 107/69 97 11/26/18 04:00 98.4 F 67 16 107/69 96 Weight Admit Weight 160 lb Weight 160 lb 14.999 oz Most Recent Monitor Data Heart Rate from ECG 86 NIBP 143/92 NIBP BP-Mean 109 Respiration from ECG 16 SpO2 100 I&O: 11/25/18 11/26/18 11/27/18 06:59 06:59 06:59 Intake Total 1350 1600 Balance 1350 1600 Result Diagrams: 11/26/18 06:36 11/26/18 06:36 Additional Labs: Accuchecks 11/26/18 11/25/18 11/25/18 05:08 20:19 17:15 POC Glucose 90 261 H 353 H 11/25/18 11:14 POC Glucose 390 H Phys Exam - Physical Examination Constitutional: NAD HEENT: PERRLA, moist MMs, sclera anicteric Neck: no nodes, no JVD, supple Respiratory: no wheezing, no rales, no rhonchi Cardiovascular: RRR, no significant murmur, no rub Gastrointestinal: soft, non-tender, no distention Musculoskeletal: no edema, pulses present Dx/Plan (1) NOLA (acute kidney injury) Code(s): N17.9 - ACUTE KIDNEY FAILURE, UNSPECIFIED Status: Acute (2) DKA (diabetic ketoacidoses) Code(s): E13.10 - OTH DIABETES MELLITUS WITH KETOACIDOSIS WITHOUT COMA Status : Acute (3) High anion gap metabolic acidosis Code(s): E87.2 - ACIDOSIS Status: Acute (4) SIRS (systemic inflammatory response syndrome) Code(s): R65.10 - SIRS OF NON-INFECTIOUS ORIGIN W/O ACUTE ORGAN DYSFUNCTION Status: Acute - Plan * E.Coli in blood, 4 days of zosyn, bacteria is sensitive, will repeat blood culture today * K remains low, she's on 40meq daily, Mg at 1.3, given 2g MgSO4 today, repeat labs in AM * sugars more appropriate now, A1C 14 * cont current treatment plan with above changes
[2018-11-26] MEDS ORDERED: Potassium Chloride 20 MEQ in Premix Bag 1 BAG IVPB SCH (09:00)
[2018-11-26] MEDS ORDERED: Magnesium 2 GM/50 ML 2 GM in Premix Bag 1 BAG IVPB SCH ×2 (09:00→14:30)
--- NOTE | 2018-11-26 12:31 | PQF ---
DATE: 11-26-18 ATTN: DR. HARJIT RAMÍREZ Please exercise your independent, professional judgment in responding to the clarification form. Clinical indicators are provided on the bottom of this form for your review Please check appropriate box(s): [ x ] Encephalopathy: Type: [ x ] Acute [ ] Subacute [ ] Chronic Etiology: [ x ] Metabolic [ ] Toxic [ ] Septic [ ] Other (please specify) [ ] Transient Alteration of Awareness [ ] Other diagnosis [ ] Unable to determine In addition, please specify: Present on Admission (POA): [ x ] Yes [ ] No [ ] Unable to determine For continuity of documentation, please document condition throughout progress notes and discharge summary. Thank You. CLINICAL INDICATORS - SIGNS / SYMPTOMS / LABS ER: FEELING LETHARGIC, SOMNOLENT ER DX: DKA, NOLA, UNDIFFERENTIATED SEPSIS CONSULT NOTE DR. BURK 11-23-18: SEVERE SEPSIS, BACTEREMIA 2/2 E COLI, SHE MAINTAINS A LITTLE BIT OF ENCEPHALOPATHY ASSOCIATED WITH HYPERNATREMIA PN DR. RAMÍREZ 11-26-18: NOLA, DKA, ACUTE HIGH ANION GAP METABOLIC ACIDOSIS, SIRS RISK FACTORS: PN DR. RAMÍREZ 11-26-18: NOLA, DKA, ACUTE HIGH ANION GAP METABOLIC ACIDOSIS, SIRS TREATMENTS: MAR: 11-26-18: MAGNESIUM, ZOSYN, LANTUS MAR: 11-25-18: NS IVF (This form is maintained as a part of the permanent medical record) 2014 [employer] All Rights Reserved [email or web address] [email or web address] Office: [phone] [facility]
--- NOTE | 2018-11-26 12:42 | PQF ---
DATE: 11-26-18 ATTN: DR. HARJIT RAMÍREZ Please exercise your independent, professional judgment in responding to the clarification form. Clinical indicators are provided on the bottom of this form for your review Please check appropriate box(es): [ x ] Sepsis [ ] SIRS due to non-infectious process (please specify etiology) [ ] with organ dysfunction [ ] without organ dysfunction [ ] Severe sepsis with acute organ dysfunction of: (Examples: encephalopathy, acute kidney failure, other) [ ] Localized infection without sepsis [ ] Other diagnosis [ ] Unable to determine In addition, please specify: Present on Admission (POA): [ x ] Yes [ ] No [ ] Unable to determine For continuity of documentation, please document condition throughout progress notes and discharge summary. Thank You. [employer] Director [employer][ ] Transient Alteration of Awareness [ ] Other diagnosis [ ] Unable to determine In addition, please specify: Present on Admission (POA): [ ] Yes [ ] No [ ] Unable to determine For continuity of documentation, please document condition throughout progress notes and discharge summary. Thank You. CLINICAL INDICATORS - SIGNS / SYMPTOMS / LABS ER: FEELING LETHARGIC, SOMNOLENT ER DX: DKA, NOLA, UNDIFFERENTIATED SEPSIS CONSULT NOTE DR. BURK 11-23-18: SEVERE SEPSIS, BACTEREMIA 2/2 E COLI, SHE MAINTAINS A LITTLE BIT OF ENCEPHALOPATHY ASSOCIATED WITH HYPERNATREMIA PN DR. RAMÍREZ 11-26-18: NOLA, DKA, ACUTE HIGH ANION GAP METABOLIC ACIDOSIS, SIRS WBC: 11-22-18: 30.5 11-24-18: 12.8 11-25-18: 13.6 11-26-18: 15.0 BANDS: 11-22-18: 12 LACTIC ACID: 2.9 PULSE: 11-22-18: 124 ER: 125, 124, 123, 128 RISK FACTORS: PN DR. RAMÍREZ 11-26-18: NOLA, DKA, ACUTE HIGH ANION GAP METABOLIC ACIDOSIS, SIRS TREATMENTS: MAR: 11-26-18: MAGNESIUM, ZOSYN, DONG MAR: 11-25-18: NS IVF (This form is maintained as a part of the permanent medical record) 2014 [employer] All Rights Reserved [email or web address] Office: [phone] [facility]ENTER[facility]ren[facility]
[2018-11-26] MEDS ORDERED: Potassium Chloride 20 MEQ TAB PO SCH (14:30)
[2018-11-26] MEDS: Insulin Regular 300 UNITS/3 ML VIAL SC PRN ×2 (18:21→20:27)
[2018-11-26] MEDS: Insulin Glargine 20 UNITS in Pre-Filled Syringe 1 EACH SC SCH (20:26)
[2018-11-27] MEDS: Piperacillin/Tazobactam 3.375 GM in Sodium Chloride 0.9% 100 ML IVPB SCH ×2 (05:17→11:10)
[2018-11-27] MEDS: Insulin Regular 300 UNITS/3 ML VIAL SC PRN ×4 (05:18→19:54)
[2018-11-27 07:34] LABS: #Eosinphils 0.3 thou/uL (0.0-0.7); #Lymphocytes 2.8 thou/uL (1.20-3.40); #Monocytes 0.9 thou/uL (0.11-0.59); #Neutrophils 8.9 thou/uL (1.40-6.50); %Basophils 0.1 % (0.0-1.0); %Eosinophils 2.5 % (0.0-10.0); %Lymphocytes 21.7 % (21.0-51.0); %Monocytes 6.8 % (0.0-10.0); Hemoglobin 11.8 g/dL (12.0-16.0); Mean Corpuscular HGB CONC 33.1 g/dL (32.0-36.0); Mean Corpuscular Hemoglobin 29.9 pg (27.0-31.0); Mean Corpuscular Volume 90.3 fL (78.0-98.0); Mean Platelet Volume 7.9 fL (7.4-10.4); Platelet Count 270 thou/uL (130-400); Red Blood Cell (RBC) Count 3.94 mill/uL (4.20-5.40); White Blood Cell (WBC) Count 12.9 thou/uL (4.8-10.8)
[2018-11-27 07:47] LABS: Anion Gap 9 mmol/L (10-20); BUN (Urea Nitrogen) 9 mg/dL (9.8-20.1); Calc. Creatinine Clearance 107 mL/min (70-130); Carbon Dioxide 29 mmol/L (22-29); Chloride 107 mmol/L (98-107); Estimated GFR-MDRD 89; Glucose 191 mg/dL (70-105); Sodium 142 mmol/L (136-145)
[2018-11-27 08:19] LABS: Potassium 2.9 mmol/L (3.5-5.1)
[2018-11-27] MEDS: Potassium Chloride 20 MEQ TAB PO SCH ×4 (08:19→18:34)
[2018-11-27] MEDS: Famotidine/PF 20 mg/2ml Vial SLOW IVP SCH (08:19)
[2018-11-27] MEDS ORDERED: Potassium Chloride 20 MEQ TAB PO SCH (09:00)
--- NOTE | 2018-11-27 11:39 | PRG ---
DATE OF SERVICE: 11/27/2018 SERVICE: Pulmonary Medicine. INTERVAL HISTORY: The patient is doing absolutely outstanding from respiratory standpoint. Breathing comfortably. No chest pain, fevers, chills, nausea, or vomiting. Otherwise, there has been no interval change to her condition. Mentation patel, she is basically recovered. Her strength is yet to come around. That being said, it is moving in the right direction. PHYSICAL EXAMINATION: VITAL SIGNS: Afebrile, pulse 77, blood pressure 101/74, respirations 16, and saturation 98% on room air. GENERAL: The patient is awake and alert, in no apparent distress. LUNGS: Decent air entry. No prolonged expiratory phase is present. Minimal dependent crackles are noted. No rhonchi or wheezing. HEART: Normal rate and regular. ABDOMEN: Soft, nontender, and nondistended. Bowel sounds are positive. MUSCULOSKELETAL: No cyanosis or clubbing. There is no pitting in the bilateral lower extremities. NEUROLOGIC: Grossly nonfocal. LABORATORY DATA: WBC 12.9, hemoglobin 11.8, platelets 270,000. Potassium 2.9. Basic metabolic profile is otherwise unremarkable. The calcium is 8.0. Blood culture is growing E. coli x2. Repeat blood cultures are negative to date. This is a mostly sensitive organism. ASSESSMENT: 1. Severe sepsis. 2. Bacteremia secondary to Escherichia coli. 3. Diabetic ketoacidosis, resolved. 4. Metabolic encephalopathy, resolved. 5. Acute kidney injury, resolved. DISCUSSION AND PLAN: The patient is doing wonderful from a respiratory standpoint. Her metabolites are much improved. Potassium will be replaced once again. At this point, she has no additional requirements for inpatient Pulmonary or Critical Care opinion, and I will sign off. Please call with additional questions or concerns through time. Job ID: [id number] [facility]
--- NOTE | 2018-11-27 14:36 | PDOC.PN ---
- Subjective Encounter Start Date: 11/27/18 Encounter Start Time: 14:35 Subjective: Feeling better. -: Loose stool has subsided. -: No nausea or vomiting. - Objective Vital Signs & Weight: Vital Signs (12 hours) Temp Pulse Resp BP Pulse Ox 11/27/18 08:30 97.8 F 77 16 101/74 98 11/27/18 08:00 98 11/27/18 04:00 97.6 F 67 16 119/77 96 Weight Admit Weight 160 lb Weight 160 lb 14.999 oz Most Recent Monitor Data Heart Rate from ECG 86 NIBP 143/92 NIBP BP-Mean 109 Respiration from ECG 16 SpO2 100 I&O: 11/26/18 11/27/18 11/28/18 06:59 06:59 06:59 Intake Total 1600 240 480 Balance 1600 240 480 Result Diagrams: 11/27/18 07:15 11/27/18 07:15 Additional Labs: Accuchecks 11/27/18 11/26/18 11/26/18 04:55 20:25 16:37 POC Glucose 196 H 298 H 194 H Phys Exam - Physical Examination Constitutional: NAD HEENT: PERRLA, moist MMs Neck: no JVD, supple Respiratory: no wheezing, no rales, no rhonchi Cardiovascular: RRR, no significant murmur Gastrointestinal: soft, non-tender, no distention, positive bowel sounds obese Musculoskeletal: no edema, pulses present Neurological: non-focal, moves all 4 limbs Psychiatric: A&O x 3 Dx/Plan (1) Uncontrolled diabetes mellitus Code(s): E11.65 - TYPE 2 DIABETES MELLITUS WITH HYPERGLYCEMIA Status: Acute (2) DKA (diabetic ketoacidoses) Code(s): E13.10 - OTH DIABETES MELLITUS WITH KETOACIDOSIS WITHOUT COMA Status : Acute (3) Sepsis Code(s): A41.9 - SEPSIS, UNSPECIFIED ORGANISM Status: Acute Comment: Present on admission. (4) E coli bacteremia Code(s): R78.81 - BACTEREMIA Status: Acute (5) Acute metabolic encephalopathy Code(s): G93.41 - METABOLIC ENCEPHALOPATHY Status: Acute (6) Proteinuria Code(s): R80.9 - PROTEINURIA, UNSPECIFIED Status: Acute (7) Hypokalemia Code(s): E87.6 - HYPOKALEMIA Status: Acute (8) Hypomagnesemia Code(s): E83.42 - HYPOMAGNESEMIA Status: Acute (9) Physical deconditioning Code(s): R53.81 - OTHER MALAISE Status: Acute (10) NOLA (acute kidney injury) Code(s): N17.9 - ACUTE KIDNEY FAILURE, UNSPECIFIED Status: Acute (11) UTI (urinary tract infection) Status: Acute (12) Elevated lipase Code(s): R74.8 - ABNORMAL LEVELS OF OTHER SERUM ENZYMES Status: Acute (13) High anion gap metabolic acidosis Code(s): E87.2 - ACIDOSIS Status: Acute - Plan Replete serum potassium. get serum magnesium -: Increase lantus to 24. -: Continue PT/OT -: Consult rehab screening -: Continue antibiotics * .
[2018-11-27] MEDS ORDERED: Insulin Glargine 4 UNITS in Pre-Filled Syringe SC SCH (15:00)
[2018-11-27 16:48] LABS: Anion Gap 12 mmol/L (10-20); BUN (Urea Nitrogen) 9 mg/dL (9.8-20.1); Calc. Creatinine Clearance 99 mL/min (70-130); Calcium 8.7 mg/dL (7.8-10.44); Carbon Dioxide 28 mmol/L (22-29); Chloride 103 mmol/L (98-107); Estimated GFR-MDRD 81; Glucose 305 mg/dL (70-105); Potassium 3.6 mmol/L (3.5-5.1); Sodium 139 mmol/L (136-145)
[2018-11-27] MEDS: cefTRIAXone\\ROCEPHIN 2 GM in Sodium Chloride 0.9% 100 ML IVPB SCH (16:49)
[2018-11-27] MEDS: metFORMIN 500 MG TAB PO SCH (19:51)
[2018-11-27 19:52] VITALS: BP 105/73; TEMP 97.3
[2018-11-27] MEDS ORDERED: Insulin Glargine 24 UNITS in Pre-Filled Syringe SC SCH (21:00)
[2018-11-28 05:39] LABS: #Eosinphils 0.3 thou/uL (0.0-0.7); #Lymphocytes 2.8 thou/uL (1.20-3.40); #Monocytes 1.1 thou/uL (0.11-0.59); #Neutrophils 8.4 thou/uL (1.40-6.50); %Basophils 0.2 % (0.0-1.0); %Eosinophils 2.4 % (0.0-10.0); %Lymphocytes 22.1 % (21.0-51.0); %Monocytes 8.4 % (0.0-10.0); %Neutrophils 66.9 % (42.0-75.0); Hemoglobin 11.9 g/dL (12.0-16.0); Mean Corpuscular Hemoglobin 30.2 pg (27.0-31.0); Mean Corpuscular Volume 91.5 fL (78.0-98.0); Mean Platelet Volume 8.1 fL (7.4-10.4); Platelet Count 266 thou/uL (130-400); RBC Distribution Width 12.1 % (11.5-14.5); Red Blood Cell (RBC) Count 3.96 mill/uL (4.20-5.40); White Blood Cell (WBC) Count 12.6 thou/uL (4.8-10.8)
[2018-11-28 05:52] LABS: Albumin 2.4 g/dL (3.5-5.0); Anion Gap 10 mmol/L (10-20); BUN (Urea Nitrogen) 7 mg/dL (9.8-20.1); BUN/Creatinine Ratio 11.86; Calc. Creatinine Clearance 126 mL/min (70-130); Calcium 8.4 mg/dL (7.8-10.44); Carbon Dioxide 27 mmol/L (22-29); Chloride 111 mmol/L (98-107); Estimated GFR-MDRD Greater than 90; Glucose 146 mg/dL (70-105); Magnesium 1.7 mg/dL (1.6-2.6); Phosphorus 2.8 mg/dL (2.3-4.7); Sodium 144 mmol/L (136-145)
[2018-11-28] MEDS: metFORMIN 500 MG TAB PO SCH (08:01)
[2018-11-28] MEDS: Famotidine/PF 20 mg/2ml Vial SLOW IVP SCH (08:01)
[2018-11-28] MEDS: cefTRIAXone\\ROCEPHIN 2 GM in Sodium Chloride 0.9% 100 ML IVPB SCH (14:34)
--- NOTE | 2018-11-28 18:48 | DIS ---
DATE OF ADMISSION: 11/22/2018 DATE OF DISCHARGE: 11/28/2018 DISCHARGE DIAGNOSES: 1. Diabetic ketoacidosis. 2. New diagnosis of diabetes mellitus. 3. Sepsis. 4. Escherichia coli bacteremia. 5. Acute metabolic encephalopathy. 6. Acute kidney injury. 7. Urinary tract infection. 8. High anion gap metabolic acidosis. 9. Hypokalemia. 10. Hypomagnesemia. 11. Proteinuria. 12. Physical deconditioning. 13. Elevated lipase. 14. Acute pancreatitis. CONSULTS: Pulmonary and Critical Care. HOSPITAL COURSE: A 53-year-old female with no significant past medical history, admitted with acute onset of nausea and vomiting as well as generalized weakness. Evaluation revealed severe metabolic acidosis, hyperglycemia, electrolyte derangement consistent with diabetic ketoacidosis. The patient does not have any prior diagnosis of diabetes, hemoglobin A1c was 14. The patient also was found to have tachycardia and leukocytosis consistent with sepsis. Evaluation with UA was suggestive of urinary tract infection. Blood cultures obtained later grew E. coli. The patient was treated with insulin infusion, IV fluids and antibiotics as well as antiemetics and analgesic with improvement of the symptoms. Diet was restarted and this was tolerated. The patient received education about diabetes and was also thought to inject herself insulin. She was also found to have some confusion which was felt to be acute encephalopathy related to metabolic derangement, electrolyte derangement, and sepsis. With treatment, mental status improved. The patient also was found to have physical deconditioning. Physical and Occupational Therapy worked with the patient. Acute inpatient rehabilitation was considered, but the patient improved and was walking around, hence was discharged home. Electrolyte derangements were corrected appropriately. PHYSICAL EXAMINATION: VITAL SIGNS: Temperature 97.3, pulse 99, respiratory rate 20, SpO2 of 99% on room air, and blood pressure 105/73. GENERAL: Middle-aged female, in no obvious distress. Afebrile. Anicteric. Acyanotic. HEENT: Normocephalic, atraumatic. Pupils are equal and reacting to light. Oral mucosa is moist. CARDIOVASCULAR: Regular rhythm and rate with normal heart sounds 1 and 2. RESPIRATORY: Good air entry bilaterally with no obvious crackle or rhonchi or use of accessory muscles. GI: Abdomen is obese, soft, nontender, nondistended with normal bowel sounds. EXTREMITIES: Grossly normal looking atraumatic with no edema or erythema. NEUROLOGIC: Conscious and alert, oriented x3 with appropriate mental status. Cranial nerves 2 through 12 are intact. The patient is ambulant. DISCHARGE CONDITION: Improved. DISCHARGE MEDICATIONS: 1. Cefdinir 300 mg p.o. b.i.d. for eight days. 2. Humalog 3 units with meals. 3. Sliding scale Humalog in addition to schedule 3 units of Humalog. 4. Lantus 30 units at bedtime. 5. Metformin 500 mg p.o. b.i.d. This discharge took more than 40 minutes. Job ID: [id number]
== END 2018-11-28 18:50 | disposition home or self-care (01) | DRG 871 ==
LOC: ERS 07:08 → CCU 10:56 → T4-A 11-23 19:37
PROVIDERS: ADMIT Internal Medicine; ATTEND Internal Medicine
DX: A41.51 Sepsis due to Escherichia coli [E. coli] (principal); E11.10 Type 2 diabetes mellitus with ketoacidosis without coma; G93.41 Metabolic encephalopathy; K85.90 Acute pancreatitis without necrosis or infection, unspecified; N17.9 Acute kidney failure, unspecified; E87.0 Hyperosmolality and hypernatremia; N39.0 Urinary tract infection, site not specified; R65.20 Severe sepsis without septic shock; K59.00 Constipation, unspecified; J30.2 Other seasonal allergic rhinitis; Z88.5 Allergy status to narcotic agent; E87.6 Hypokalemia; E83.42 Hypomagnesemia; R80.9 Proteinuria, unspecified
CPT/HCPCS: 36415; 36416; 51701; 70450; 71045; 76705; 80048; 80053; 80069; 81003; 81015; 82010; 82330; 82570; 82803; 83036; 83605; 83690; 83735; 84100; 84156; 84484; 85025; 87040; 87077; 87086; 87149; 87186; 87804; 96365; 96367; A4353; J0696; J1815; J1825; J2405; J2543; J3475; J3480; J7050; S0028

== ENCOUNTER 2020-04-30 16:11 | Outpatient (CLI) | payer OTHER ==
--- NOTE | 2020-04-30 16:54 | MMO ---
Bilateral MAMMO Bilat Screen [facility]. CLINICAL HISTORY: Patient is 54 years old and is seen for screening. The patient has no family history of breast cancer. The patient has no personal history of cancer. VIEWS: The views performed were: bilateral craniocaudal with tomosynthesis and bilateral mediolateral oblique with tomosynthesis. This study has been interpreted with the assistance of computer-aided detection. MAMMOGRAM FINDINGS: There are scattered fibroglandular densities. Benign calcifications are noted bilaterally. There are no suspicious masses, suspicious calcifications, or new areas of architectural distortion. IMPRESSION: THERE IS NO MAMMOGRAPHIC EVIDENCE OF MALIGNANCY. A ROUTINE FOLLOW-UP MAMMOGRAM IN 1 YEAR IS RECOMMENDED. THE RESULTS OF THIS EXAM WERE SENT TO THE PATIENT. ACR BI-RADS Category 2 - Benign finding MAMMOGRAPHY NOTE: 1. A negative mammogram report should not delay a biopsy if a dominant of clinically suspicious mass is present. 2. Approximately 10% to 15% of breast cancers are not detected by mammography. 3. Adenosis and dense breasts may obscure an underlying neoplasm. Reported by: EMIGDIO BRADEN MD Electonically Signed: [id number]
== END 2020-04-30 16:12 | disposition home or self-care (01) ==
LOC: BICMAMMO 16:11
PROVIDERS: ATTEND Physician Assistant
DX: Z12.31 Encounter for screening mammogram for malignant neoplasm of breast (principal)
CPT/HCPCS: 77063; 77067

== ENCOUNTER 2021-09-06 10:49 | Outpatient (CLI) | payer BC | END 2021-09-06 10:50 | disposition home or self-care (01) | LOC: BICMAMMO 10:49 | PROVIDERS: ATTEND Physician Assistant | DX: Z12.31 Encounter for screening mammogram for malignant neoplasm of breast (principal) | CPT/HCPCS: 77063; 77067 ==

== ENCOUNTER 2022-11-04 08:00 | Outpatient (CLI) | payer BC | END 2022-11-04 08:01 | disposition home or self-care (01) | LOC: BICMAMMO 08:00 | PROVIDERS: ATTEND Physician Assistant | DX: Z12.31 Encounter for screening mammogram for malignant neoplasm of breast (principal); N63.20 Unspecified lump in the left breast, unspecified quadrant | CPT/HCPCS: 77063; 77067 ==

== ENCOUNTER 2022-11-14 13:23 | Outpatient (CLI) | payer BC | END 2022-11-14 13:24 | disposition home or self-care (01) | LOC: BICMAMMO 13:23 | PROVIDERS: ATTEND Physician Assistant | DX: N63.25 Unspecified lump in the left breast, overlapping quadrants (principal) | CPT/HCPCS: G0279 ==

== ENCOUNTER 2023-05-29 09:54 | Outpatient (CLI) | payer BC | END 2023-05-29 09:55 | disposition home or self-care (01) | LOC: BICMAMMO 09:54 | PROVIDERS: ATTEND Physician Assistant | DX: R92.8 Other abnormal and inconclusive findings on diagnostic imaging of breast (principal); N63.25 Unspecified lump in the left breast, overlapping quadrants | CPT/HCPCS: G0279 ==